=== PATIENT | female | born 1955 | race Two or more races ===

== ENCOUNTER 2024-10-08 20:29 | Emergency (ER) | payer OTHER ==
[~2024-10-08] VITALS: Ht 157.5 cm; Wt 86.2 kg
[2024-10-08] MEDS ORDERED: CALCITRIOL0.5 MCG PO (21:13)
[2024-10-08] MEDS ORDERED: SYNTHROID125 MCG PO (21:13)
[2024-10-08] MEDS ORDERED: 0.9 % SODIUM CHLORIDE 1,000 ML IV STA (21:48)
[2024-10-08] MEDS ORDERED: MORPHINE SULFATE 4 MG/ML CARTRIDGE IV SCH (22:00)
[2024-10-08] MEDS ORDERED: FAMOTIDINE/PF 20 MG/2 ML VIAL ONE (22:00)
[2024-10-08] MEDS ORDERED: FAMOTIDINE/PF 20 MG/2 ML VIAL IV ONE (22:00)
[2024-10-08] MEDS ORDERED: ONDANSETRON HCL 2 MG/ML VIAL ONE (22:09)
[2024-10-08] MEDS ORDERED: ONDANSETRON HCL 2 MG/ML VIAL IV ONE (22:15)
[2024-10-08 23:40] LABS: ALBUMIN 3.3 gm/dL (3.4-5.0); BILIRUBIN TOTAL 0.24 mg/dL (0.3-1.2); CALCIUM 7.5 mg/dL (8.5-10.1); CREATININE SERUM 0.91 mg/dL (0.55-1.02); GFR 61.11; GLOBULINA 4.8 G/DL (2.4-3.5); POTASSIUM 4.38 mEq/L (3.5-5.1); TOTAL PROTEIN 8.1 gm/dL (6.4-8.2)
[2024-10-08 23:55] LABS: PARTIAL THROMBOPLASTIN TIME > 139.0 SECONDS (22.0-34.0); PROTHROMBIN TIME > 90.0 SECONDS (9.0-11.5)
[2024-10-09] MEDS ORDERED: KETOROLAC TROMETHAMINE 30 MG VIAL IV STA (02:40)
[2024-10-09] MEDS ORDERED: MORPHINE SULFATE 4 MG/ML VIAL IV STA (02:41)
[2024-10-09] MEDS ORDERED: ONDANSETRON HCL 2 MG/ML VIAL ONE ×2 (02:55→02:56)
[2024-10-09] MEDS ORDERED: KETOROLAC TROMETHAMINE 30 MG VIAL ONE (02:55)
[2024-10-09 03:32] LABS: BASO % 0.2 % (0.1-1.2); EOS # 0.06 (0.04-0.54); EOS % 0.5 % (0.7-7.0); HEMATOCRIT 39.9 % (34.1-44.9); HEMOGLOBIN 13.2 g/dL (11.2-15.7); LYMPH # 2.69 (1.18-3.74); LYMPH % 21.5 % (19.3-53.1); MEAN CORPUSCULAR HEMOGLOBIN 27.6 pg (25.6-32.2); MONO # 0.82 (0.24-0.82); MONO % 6.5 % (4.7-12.5); NEUT % 71.1 % (34.0-71.1); PLATELET COUNT 316 K/uL (163-369); RED BLOOD COUNT 4.78 M/uL (3.93-5.22); RED CELL DISTRIBUTION WIDTH 16.5 % (11.6-14.4)
== END 2024-10-09 06:14 | disposition home or self-care (01) ==
LOC: ER 21:41
PROVIDERS: Emergency Medicine
DX: N20.1 Calculus of ureter (principal); R10.9 Unspecified abdominal pain
CPT/HCPCS: 36415; 74176; 96365; 96366; 99284; J1885; J2270 ×2; J2405; J3490; J7030